=== PATIENT | female | born 2000 | race Two or more races ===

== ENCOUNTER 2024-05-28 03:20 | Outpatient (CLI) | payer OTHER | END 2024-05-28 04:00 | disposition home or self-care (01) | LOC: PPH VACUNA 03:20 | PROVIDERS: ATTEND Emergency Medicine Pediatric Emergency Medicine | DX: Z23 Encounter for immunization (principal) ==

== ENCOUNTER 2024-10-30 06:43 | Outpatient (CLI) | payer OTHER ==
[2024-10-30 07:49] LABS: HEMATOCRIT 38.1 % (36.0-45.00); HEMOGLOBIN 12.7 g/dL (12.0-15.00); MEAN CELL VOLUME 87.1 fL (80.00-100.00); MEAN CORPUSCULAR HEMOGLOBIN 29.2 pg (27.00-32.0); MEAN CORPUSCULAR HGB CONC 33.5 g/dl (32.0-36.0); PLATELET COUNT 229 K/uL (150-450); RED BLOOD COUNT 4.37 M/uL (4.00-6.00); RED CELL DISTRIBUTION WIDTH 14.7 % (11.5-14.5)
[2024-10-30 08:02] LABS: PH,URINE 5.5 (5.0-8.0); URINE APPEARANCE Clear; URINE BILIRRUBIN Negative (NEGATIVE); URINE BLOOD Small; URINE COLOR Yellow; URINE GLUCOSE Negative (NEGATIVE); URINE LEUKOCYTE Trace; URINE NITRATE Negative; URINE PROTEIN Trace (NEGATIVE); URINE UROBILINOGEN 0.2 E.U./dl
[2024-10-30 08:03] LABS: URINE BACTERIA 2462.6 uL (0.0-1933); URINE CAST 3.38 uL (0.0-1.40); URINE EPITHELIAL CELLS 25.3 uL (0.0-38.8); URINE RBC 76.1 uL (0.0-20.8); URINE WBC 37.5 uL (0.0-23.2)
[2024-10-30 08:08] LABS: URINE KETONE >=160 (NEGATIVE)
[2024-10-30 08:40] LABS: CALCIUM 9.3 mg/dL (8.5-10.1); CHOL HDL RATIO 2.9 (0-5.0); CREATININE SERUM 0.57 mg/dL (0.55-1.02); GFR 130.31; POTASSIUM 3.92 mEq/L (3.5-5.1); T4 TOTAL 8.66 UG/DL (4.8-13.9); TSH 1.9 uIU/mL (0.358-3.74)
[2024-10-30 11:01] LABS: RH POSITIVE
== END 2024-10-30 06:50 | disposition home or self-care (01) ==
LOC: LAB 06:43
DX: N39.0 Urinary tract infection, site not specified (principal); I10 Essential (primary) hypertension; E03.8 Other specified hypothyroidism; E78.00 Pure hypercholesterolemia, unspecified

== ENCOUNTER 2025-04-18 07:17 | Outpatient (CLI) | payer OTHER ==
[2025-04-18 08:05] LABS: BASO % 0.4 % (0.1-1.2); EOS # 0.08 (0.04-0.54); EOS % 0.8 % (0.7-7.0); LYMPH # 2.70 (1.18-3.74); LYMPH % 27.7 % (19.3-53.1); MEAN PLATELET VOLUME 10.60 fl (9.4-12.4); MONO # 0.52 (0.24-0.82); MONO % 5.3 % (4.7-12.5); NEUT # 6.36 (1.56-6.13); NEUT % 65.3 % (34.0-71.1); RED CELL DISTRIBUTION WIDTH 13.2 % (11.6-14.4)
[2025-04-18 08:17] LABS: URINE BACTERIA 331.1 uL (0.0-1933); URINE EPITHELIAL CELLS 4.7 uL (0.0-38.8); URINE RBC 23.7 uL (0.0-20.8); URINE WBC 3.6 uL (0.0-23.2)
[2025-04-18 08:24] LABS: URINE APPEARANCE Clear; URINE BILIRRUBIN Negative (NEGATIVE); URINE BLOOD Small; URINE COLOR Yellow; URINE GLUCOSE Negative (NEGATIVE); URINE KETONE Negative (NEGATIVE); URINE LEUKOCYTE Negative; URINE NITRATE Negative; URINE PROTEIN Negative (NEGATIVE); URINE UROBILINOGEN 0.2 E.U./dl
[2025-04-18 08:34] LABS: URINE CAST 0.00 uL (0.0-1.40)
[2025-04-18 09:08] LABS: ALT/SGPT 19.0 U/L (12-78); AST/SGOT 12.0 U/L (15-37); BILIRUBIN TOTAL 0.38 mg/dL (0.3-1.2); BUN CREA RATIO 29.0 (7.0-25.0); CHOL HDL RATIO 2.6 (0-5.0); CREATININE SERUM 0.56 mg/dL (0.55-1.02); GFR 131.9; GLOBULINA 3.4 G/DL (2.4-3.5); GLUCOSE FASTING 79.0 mg/dL (65-100); HDL 55.0 mg/dl (40-60); LDL 77.0 mg/dl (0-130); OSMOLALITY SERUM 281.0 MOSM/KG (275-295); TSH 2.42 uIU/mL (0.358-3.74); VLDL 9.0 (0-39)
[2025-04-19 07:10] LABS: hav igm Negative (Negative); hep b c Negative (Negative); hep b s ag Negative (Negative)
[2025-04-19 09:08] LABS: CA 125 15.3 U/mL (0.0-38.1)
[2025-04-19 21:07] LABS: chla t Negative (Negative); neiss Negative (Negative)
== END 2025-04-18 07:23 | disposition home or self-care (01) ==
LOC: LAB 07:17
DX: M81.0 Age-related osteoporosis without current pathological fracture (principal); Z12.11 Encounter for screening for malignant neoplasm of colon; D64.9 Anemia, unspecified; E03.8 Other specified hypothyroidism; N95.1 Menopausal and female climacteric states; I10 Essential (primary) hypertension; C51.9 Malignant neoplasm of vulva, unspecified; A64 Unspecified sexually transmitted disease; N39.0 Urinary tract infection, site not specified; R97.8 Other abnormal tumor markers; R79.89 Other specified abnormal findings of blood chemistry; E55.9 Vitamin D deficiency, unspecified; A60.9 Anogenital herpesviral infection, unspecified; R97.1 Elevated cancer antigen 125 [CA 125]; E78.00 Pure hypercholesterolemia, unspecified; Z11.59 Encounter for screening for other viral diseases; K76.9 Liver disease, unspecified; B19.9 Unspecified viral hepatitis without hepatic coma; M85.80 Other specified disorders of bone density and structure, unspecified site; E89.820 Postprocedural hematoma of an endocrine system organ or structure following an endocrine system procedure